=== PATIENT | female | born 1980 ===

== ENCOUNTER 2023-03-17 09:04 | Outpatient (AMB) | payer BC, SELFPAY ==
--- NOTE | 2023-03-17 09:16 | A.OFFVIS_ITS ---
Intake VS Expanded 03/17/23 09:22 Height 5 ft 5 in Weight 186 lb 12.8 oz BMI 31.1 BP 155/57 H Blood Pressure Location Rt brachial Blood Pressure Position Sitting Pulse 88 Pulse Source Pulse Oximeter Temp 97.4 F Temperature Source Temporal Artery Scan Pulse Oximetry 98 Oxygen Delivery Method Room Air Body Fat 64.0 Body Fat Percentage 34.2 Free Fat Mass 122.8 Muscle Mass 116.6 Visceral Mass 7.0 Water Mass 87.8 BMR 1,669 Intake Visit Reasons: (OV) Gastric Balloon *ARRIVE AT 8 AM* Nurse Paralegal Required: No Outside Sales Account Representative: Outside Sales Account Representative offered & declined Allergies No Known Allergies Allergy (Verified 03/17/23 09:19) Medication List - Last Reconciled 03/17/23 by Christian Velasco MD insulin lispro (Humalog KwikPen (U-100) Insulin) subcut HPI HPI Comments History of Present Illness Details The patient is a 42-year-old woman who scheduled an appointment to discuss her weight and concerns. She reports a history of DM2, HTN & snoring. Her weight became an issue in her early 20s & she has not tried any fad diets. She was transiently started on metformin for DM2, but was switched to insulin & Trulicity due to intolerance of metformin, with vomiting & diarrhea. I do not surrently have the pt's labs nor PCP/DM management notes, the patient is given me permission to communicate with her PCP and other physicians. The patient was offered interpretive language services but declined. Patient presents today with a weight of 186.8 lb and BMI of 31.1. The patient notes a history of hypertension but that her lisinopril may be stopped; she notes a prior history of being on metformin and did not tolerated due to diarrhea and vomiting; she states that she is currently being titrated on Trulicity to stop her NPH insulin She notes a family history of diabetes and diabetes related health problems in her immediate and extended family. Patient notes that she is interested in Orbera balloon. She reports that her heaviest weight was in the 220 range. Patient reports a history of stomach infections Patient's past surgical history includes 2 C sections and in vitro fertilization GERD 0 ESS 3 QOL 83 HALIMA 0 SF-36 questionnaire: Completed [facility] Surgical History (Updated 03/17/23 @ 09:19 by Angelica Sullivan CMA) Hx of section Family History (Updated 03/17/23 @ 09:21 by Angelica Sullivan CMA) Mother Hypertension Diabetes Father Hypertension Diabetes Kidney problem Son No problems noted. Daughter No problems noted. Social History (Updated 03/17/23 @ 09:19 by Angelica Sullivan CMA) Alcohol intake: never Patient Tobacco Use Status: Never used Tobacco Review of Systems Const All systems reviewed & are unremarkable except as noted in HPI and below Reports as per HPI Physical Exam Vital Signs: Last Vital Signs Temp 97.4 F 03/17/23 09:22 Pulse 88 03/17/23 09:22 BP 155/57 H 03/17/23 09:22 Pulse Ox 98 03/17/23 09:22 Oxygen Delivery Method Room Air 03/17/23 09:22 BMI result Body Mass Index 31.1 The patient is non-toxic & in good spirits NC/AT, PERRLA, EOMI Mood, affect & judgment all appear appropriate Sclera anicteric conjunctiva pink and moist Oropharynx is clear with no aphthous ulcers, Mallampati class 2, mucous membranes moist Neck is supple with no masses, adenopathy or bruits Thyroid is nontender and free of dominant masses Heart is regular, normal S1-S2 no rubs or murmurs Lungs are clear and equal anteriorly with no audible wheezing, rubs or dullness to percussion Abdomen is obese with no demonstrable hernias. No HSM, rebound, rigidity, guarding, masses or bruits are present. Rectal exam is deferred Skin has good turgor and is free of rashes Extremities free of cyanosis clubbing edema Results Reviewed Results Reviewed: The patient requested we obtain fasting labs from her PCP since she just had her diabetes and other general health labs done. We will also confer medications since the patient reported conflicting information to the MA and physician Assessment & Plan Assessment & Plan (1) Class 1 obesity due to excess calories in adult: Code(s): E66.09 - Other obesity due to excess calories (2) DMII (diabetes mellitus, type 2): Code(s): E11.9 - Type 2 diabetes mellitus without complications (3) HTN (hypertension): Code(s): I10 - Essential (primary) hypertension Plan Using a teaching printmaker, explained about obesity in the need to obtain dietary Education regarding diet since a high-protein, high-fiber diet is endorsed to help with weight loss. Specifically, excess carbohydrates, sugar sweetened beverages in fried foods including any type of fat will contribute to obesity and the importance of diet with any bariatric intervention was reviewed and apparently understood by the patient. I reviewed the patient's request of Orbera balloon with the hartman of $6000 that is not covered by the insurance and will require dietary changes to qualify for endoscopic placement and that the balloon stays for 6 months and is then removed. The importance of coordinating her care with her PCP and other per practitioners was discussed and requested by the patient. We will contact her PCP for an medication list and recent fasting labs. The patient will follow-up for 45 minute visit after we have obtained these labs and will continue the discussion of Orbera balloon. Coding Level of Care Code New Pt Level 4 (89997) Diagnoses Class 1 obesity due to excess calories in adult E66.09 DMII (diabetes mellitus, type 2) E11.9 HTN (hypertension) I10
[2023-03-17 09:22] VITALS: BP 155/57; PULSE 88; TEMP 36.3; O2SAT 98; BMI 31.1
== END 2023-03-17 10:44 | disposition home or self-care (01) ==
PROVIDERS: PCP Pediatrics; Visit Provider Surgery
DX: E66.09 Other obesity due to excess calories (principal); Z68.31 Body mass index [BMI] 31.0-31.9, adult; E11.9 Type 2 diabetes mellitus without complications; I10 Essential (primary) hypertension
CPT/HCPCS: 99204

== ENCOUNTER → 2023-03-17 09:04 | Outpatient (BNVA) | payer BC, SELFPAY | PROVIDERS: PCP Pediatrics; Visit Provider Surgery ==

== ENCOUNTER 2023-04-04 09:12 | Outpatient (AMB) | payer BC, SELFPAY ==
--- NOTE | 2023-04-04 09:40 | A.OFFVIS_ITS ---
Intake Vital Signs 04/04/23 09:46 Height 5 ft 5 in Weight 189 lb 9.561 oz BMI 31.5 BP 140/80 H Blood Pressure Location Lt brachial Position Sitting Pulse 84 Temp 98.0 F Temp Source Temporal Artery Scan Pulse Oximetry (%) 100 Neck Circumference 6.69 in Waist Circumference 16.93 in Intake Visit Reasons: (OV) f/u Gastric Balloon Intake Note: Patient here to f/u gastric balloon. Reports no concerns. Assistant Athletic Trainer Required: No Accompanied by: Self / Same As Patient Allergies No Known Allergies Allergy (Verified 04/04/23 09:45) HPI HPI Comments History of Present Illness Details The patient is a 42-year-old woman who reports a past medical history class 1 morbid obesity with a comorbidities of type 2 diabetes requiring insulin and hypertension. She is interested in Orbera balloon. Previous weight loss attempts include She reports her heaviest weight as Current exercise routine includes GERD ESS QOL HALIMA SF36 Wakes Sleep Brkfst lunch Din Snack Beverages ETOH/Marijuana/Nictotine/Drugs PFSH Surgical History Hx of section Family History Mother Hypertension Diabetes Father Hypertension Diabetes Kidney problem Son No problems noted. Daughter No problems noted. Social History Alcohol intake: never Patient Tobacco Use Status: Never used Tobacco Physical Exam Vital Signs: Last Vital Signs Temp 98.0 F 04/04/23 09:46 Pulse 84 04/04/23 09:46 BP 140/80 H 04/04/23 09:46 Pulse Ox 100 04/04/23 09:46 BMI result Body Mass Index 31.5 Coding Diagnoses
[2023-04-04 09:46] VITALS: BP 140/80; PULSE 84; TEMP 36.7; O2SAT 100; BMI 31.5
--- NOTE | 2023-04-04 09:58 | A.OFFVIS_ITS ---
Intake VS Expanded 04/04/23 09:46 Height 5 ft 5 in Weight 189 lb 9.561 oz BMI 31.5 BP 140/80 H Blood Pressure Location Lt brachial Blood Pressure Position Sitting Pulse 84 Temp 98.0 F Temperature Source Temporal Artery Scan Pulse Oximetry 100 Body Fat 64.4 Body Fat Percentage 34.5 Free Fat Mass 122.4 Muscle Mass 116.2 Visceral Mass 7.0 Water Mass 87.4 BMR 1,664 Neck Circumference 6.69 in Waist Circumference 16.93 in Intake Visit Reasons: (OV) f/u Gastric Balloon Intake Note: Patient here to f/u gastric balloon. Reports no concerns. No changes with medications. Delivery Assistant Required: No Public Relations Counselor: Public Relations Counselor offered & declined Accompanied by: Self / Same As Patient Allergies No Known Allergies Allergy (Verified 04/04/23 09:59) Medication List - Last Reviewed 04/04/23 by SHYANNE Tyson dulaglutide (Trulicity) 3 mg subcut QWEEK insulin lispro (Humalog KwikPen (U-100) Insulin) subcut lisinopril 10 mg PO DAILY HPI HPI Comments History of Present Illness Details The patient is a 42-year-old woman who scheduled an appointment to discuss her weight and concerns. She reports a history of DM2, HTN & snoring. Her weight became an issue in her early 20s & she has not tried any fad diets. She was transiently started on metformin for DM2, but was switched to insulin (Lantus & NPH) & Trulicity due to intolerance of metformin, with vomiting & diarrhea. The patient has given me permission to communicate with her PCP and other physicians. The patient notes that she has been experiencing some hypoglycemic episodes and has a follow-up with her PCP who is managing her diabetes in mid May. The patient was offered interpretive language services but declined. Patient presents today with a weight of 186.8 lb and BMI of 31.1, which is the same as entry into our program.. The patient notes a history of hypertension but that her lisinopril may be stopped; she notes a prior history of being on metformin and did not tolerated due to diarrhea and vomiting; she states that she is currently being titrated on Trulicity to stop her NPH insulin She notes a family history of diabetes and diabetes related health problems in her immediate and extended family. Patient notes that she is interested in Orbera balloon, but also had questions regarding possible bariatric surgery since her insurance is now covering baria tric surgery for patients with obesity and type 2 diabetes to a BMI of 30. She reports that her heaviest weight was in the 220 range. Patient reports a history of stomach infections Patient's past surgical history includes 2 C sections and in vitro fertilization GERD 0 ESS 3 QOL 83 HALIMA 0 SF-36 questionnaire: Completed [facility] Surgical History Hx of section Family History Mother Hypertension Diabetes Father Hypertension Diabetes Kidney problem Son No problems noted. Daughter No problems noted. Social History Alcohol intake: never Patient Tobacco Use Status: Never used Tobacco Review of Systems Const All systems reviewed & are unremarkable except as noted in HPI and below Reports as per HPI Physical Exam Vital Signs: Last Vital Signs Temp 98.0 F 04/04/23 09:46 Pulse 84 04/04/23 09:46 BP 140/80 H 04/04/23 09:46 Pulse Ox 100 04/04/23 09:46 BMI result Body Mass Index 31.5 On exam, the patient is anicteric She is in no acute respiratory distress She is in good spirits Her abdomen is obese and soft with no tenderness Results Reviewed Results Reviewed: Labs from [facility] dated 03/15/2023 are reviewed BUN 17, creatinine 0.8, electrolytes within normal parameters Liver function tests are within normal parameters Hemoglobin A1c 6.1 Magnesium, calcium-both normal Iron studies are within normal parameters Cholesterol is elevated at 213, HDL 40, non HDL 173, Vitamin-D 41.0 B12 elevated at 15 19 TSH 0.70, free T4 0.99 Assessment & Plan Assessment & Plan (1) Class 1 obesity due to excess calories in adult: Code(s): E66.09 - Other obesity due to excess calories (2) DMII (diabetes mellitus, type 2): Code(s): E11.9 - Type 2 diabetes mellitus without complications (3) HTN (hypertension): Code(s): I10 - Essential (primary) hypertension (4) High cholesterol: Code(s): E78.00 - Pure hypercholesterolemia, unspecified Plan Online Education regarding bariatric surgery options was provided to the patient; she was unaware that she qualified and would like to do some self Education before committing to either the Orbera balloon or operative intervention. She understands and we discussed that medical management is still an option. Dietary handouts and meal replacement with a protein shake was disc ussed. The patient is currently taking a multivitamin. The importance of exercise as part of successful weight loss in addition to meal replacement and dietary Education regarding a high-protein/low-carbohydrate/low-fat diet was discussed and apparently understood. The patient is in agreement that she would like to move forward, so I have ordered the routine Orbera pre procedure workup, I did not order repeat labs including CBC, CMP, vitamin-D, B12. Patient will return in early May; she has a follow-up with her PCP/diabetic physician in mid May. She is encouraged to write down any questions regarding the options of medical weight loss, bariatric surgery and gastric balloon for her next appointment. Orders: Orders C Reactive Protein Today E11.9 - Type 2 diabetes mellitus without complications, E66.09 - Other obesity due to excess calories, E78.00 - Pure hypercholesterolemia, unspecified, I10 - Essential (primary) hypertension Insulin Today E11.9 - Type 2 diabetes mellitus without complications, E66.09 - Other obesity due to excess calories, E78.00 - Pure hypercholesterolemia, unspecified, I10 - Essential (primary) hypertension PTHI Today E11.9 - Type 2 diabetes mellitus without complications, E66.09 - Other obesity due to excess calories, E78.00 - Pure hypercholesterolemia, unspecified, I10 - Essential (primary) hypertension Vitamin A Today E11.9 - Type 2 diabetes mellitus without complications, E66.09 - Other obesity due to excess calories, E78.00 - Pure hypercholesterolemia, unspecified, I10 - Essential (primary) hypertension Vitamin B1 Today E11.9 - Type 2 diabetes mellitus without complications, E66.09 - Other obesity due to excess calories, E78.00 - Pure hypercholesterolemia, unspecified, I10 - Essential (primary) hypertension Zinc Today E11.9 - Type 2 diabetes mellitus without complications, E66.09 - Other obesity due to excess calories, E78.00 - Pure hypercholesterolemia, unspecified, I10 - Essential (primary) hypertension ECG 12 lead EKG Today E11.9 - Type 2 diabetes mellitus without complications, E66.09 - Other obesity due to excess calories, E78.00 - Pure hypercholesterolemia, unspecified, I10 - Essential (primary) hypertension H Pylori Breath Test Today E11.9 - Type 2 diabetes mellitus without complications, E66.09 - Other obesity due to excess calories, E78.00 - Pure hypercholesterolemia, unspecified, I10 - Essential (primary) hypertension Coding Level of Care Code Est Pt Level 4 (28197) Diagnoses Class 1 obesity due to excess calories in adult E66.09 DMII (diabetes mellitus, type 2) E11.9 HTN (hypertension) I10 High cholesterol E78.00
== END 2023-04-04 10:37 | disposition home or self-care (01) ==
PROVIDERS: PCP Pediatrics; Visit Provider Surgery
DX: E66.09 Other obesity due to excess calories (principal); Z68.31 Body mass index [BMI] 31.0-31.9, adult; E11.9 Type 2 diabetes mellitus without complications; I10 Essential (primary) hypertension
CPT/HCPCS: 99214

== ENCOUNTER → 2023-04-04 09:12 | Outpatient (BNVA) | payer BC, SELFPAY | PROVIDERS: PCP Pediatrics; Visit Provider Surgery ==

== ENCOUNTER 2023-05-09 08:47 | Outpatient (AMB) | payer BC, SELFPAY ==
--- NOTE | 2023-05-09 08:49 | A.OFFVIS_ITS ---
Intake VS Expanded 05/09/23 09:01 Height 5 ft 6 in Weight 189 lb 3.2 oz BMI 30.5 BP 134/77 Blood Pressure Location Rt brachial Blood Pressure Position Sitting Pulse 99 Pulse Source Pulse Oximeter Temp 97.4 F Temperature Source Tympanic Pulse Oximetry 98 Oxygen Delivery Method Room Air Body Fat 63.2 Body Fat Percentage 33.4 Free Fat Mass 125.8 Muscle Mass 119.4 Visceral Mass 7.0 Water Mass 89.8 BMR 1,706 Intake Visit Reasons: (OV) f/u Gastric Balloon Avionics Manager Required: No Cryptologic Technician Operator/Analyst: Cryptologic Technician Operator/Analyst offered & declined Allergies No Known Allergies Allergy (Verified 05/09/23 08:58) Medication List - Last Reviewed 05/09/23 by Arlette Salas CMA dulaglutide (Trulicity) 3 mg subcut QWEEK insulin lispro (Humalog KwikPen (U-100) Insulin) subcut HPI HPI Comments History of Present Illness Details The patient is a 42-year-old woman who scheduled an appointment to discuss her weight and concerns. She reports a history of DM2, HTN & snoring. Her weight became an issue in her early 20s & she has not tried any fad diets. She was transiently started on metformin for DM2, but was switched to insulin (Lantus & NPH) & Trulicity due to intolerance of metformin, with vomiting & diarrhea. The patient has given me permission to communicate with her PCP and other physicians. The patient notes that she has been experiencing some hypoglycemic episodes and has a follow-up with her PCP who is managing her diabetes in mid May. The patient was offered interpretive language services but declined. Patient presents today with a weight of 189.2/30.5, up from last visit 186.8 lb, which is the same as entry into our program. The patient notes a history of hypertension requiring lisinopril; she notes a prior history of being on metformin and did not tolerated due to diarrhea and vomiting; she states that she is currently being titrated on Trulicity to stop her NPH insulin She notes a family history of diabetes and diabetes related health problems in her immediate and extended family. Patient notes that she is interested in laparoscopic sleeve gastrectomy given her DM & HTN, since her insurance is now covering bariatric surgery for patients with obesity and type 2 diabetes to a BMI of 30. She reports that her heaviest weight was in the 220 range. Patient reports a history of stomach infections Patient's past surgical history includes 2 C sections and in vitro fertilization GERD 0 ESS 3 QOL 83 HALIMA 0 SF-36 questionnaire: Completed Meal plan Currently using Pure protein with almond milk. The Right BMI goal: 70gm protein Meal at Dinner 7 forkfuls meat & 7 vegetables Has [employer] membership, but has been walking outside 3-4 days x 45-60' unsure of distance or calories PFSH Surgical History Hx of section Family History Mother Hypertension Diabetes Father Hypertension Diabetes Kidney problem Son No problems noted. Daughter No problems noted. Social History Alcohol intake: never Patient Tobacco Use Status: Never used Tobacco Review of Systems Const All systems reviewed & are unremarkable except as noted in HPI and below Reports as per HPI Physical Exam Vital Signs: Last Vital Signs Temp 97.4 F 05/09/23 09:01 Pulse 99 05/09/23 09:01 BP 134/77 05/09/23 09:01 Pulse Ox 98 05/09/23 09:01 Oxygen Delivery Method Room Air 05/09/23 09:01 BMI result Body Mass Index 30.5 On exam, the patient is anicteric She is in no acute respiratory distress She is in good spirits Her abdomen is obese and soft with no tenderness Results Reviewed Results Reviewed: Labs from [facility] dated 03/15/2023 are reviewed BUN 17, creatinine 0.8, electrolytes within normal parameters Liver function tests are within normal parameters Hemoglobin A1c 6.1 Magnesium, calcium-both normal Iron studies are within normal parameters Cholesterol is elevated at 213, HDL 40, non HDL 173, Vitamin-D 41.0 B12 elevated at 15 19 TSH 0.70, free T4 0.99 Assessment & Plan Assessment & Plan (1) DMII (diabetes mellitus, type 2): Code(s): E11.9 - Type 2 diabetes mellitus without complications (2) Class 1 obesity due to excess calories in adult: Code(s): E66.09 - Other obesity due to excess calories (3) HTN (hypertension): Code(s): I10 - Essential (primary) hypertension (4) High cholesterol: Code(s): E78.00 - Pure hypercholesterolemia, unspecified Plan The patient would like to proceed with a laparoscopic sleeve gastrectomy, possible hiatal hernia repair, intraoperative endoscopy and possible ventral hernia repair given her obesity related type 2 diabetes requiring insulin and Trulicity, hypertension requiring lisinopril which is being changed by her PCP given dizziness issues. Patient has used both or gain protein powder an almond milk and pure protein supplement in almond milk. Her goal of 70 g of protein per day was obtained by the right BMI apps. As she requested, this information will be emailed to her and she will purchase a body composition scale. The importance of following the diet and increased activity, specifically tracking of calories burned to augment weight loss and help her obtain goals was reviewed and apparently understood. Patient will return to clinic in 3 weeks and text me weekly weights. The risk of weight gain and return of type 2 diabetes requiring medical intervention in the event of resuming previous diet was discussed. The importance of increased activity/exercise was also discussed and apparently understood. Preop Bariatric Plan 1.?? Nutritional counseling:?Be sure to careful read the number of scoops per shake if you are using powdered mix Start with 3 Pure Protein shakes ([employer], [employer], [facility]) 2.?? Goal: 70 grams of protein/day, as shakes & dinner protein First shake (1 scoop in 8 oz low fat unsweetened almond milk) at 8am-10am Second shake, (1/2 scoop in 8 oz low fat unsweetened almond milk) at 11am-1pm Dinner ?(7 forks of protein and 7 forks of salad/vegetables). Meal to include lean meat (beef, fish, pork, turkey, chicken), cooked vegetables or a salad with olive oil and/or fruits (berries, pears, apples, kiwi). Avoid breads, potatoes, starches, rice, pasta, desserts. Another shake with 1/2 scoop in 8 oz unsweetened almond milk at 7pm-9pm. Try to drink 64 oz of water daily and avoid soda and juices. ?2. Each shake would be drunk slowly, like coffee in a period of 2 hours. ?3. Cut each bar in 4 pieces and eat each piece in 30 min to make each bar last 2 hours. ?4. I emphasized the importance of measuring accurately the food portion and measure it carefully when serving the food on the plate ?5. The meal portions include 10 full-size forks of meat and 10 full-size forks of salad. You should always eat the meat portion but you can skip the forks of salad/vegetables and replace with a fruit if you like. The less you do it the better weight loss will be. ?6. One full-size fork is what can be scooped on the fork without falling aside and not what can be bit with the fork. Use regular forks like those you find in a typical restaurant. ?7.? Please send me weight measurements as soon as possible and then once a week. Always include your diet and exercise plan. Alternatively come weekly at the office for weight checks and send me the measurements. ?8. Exercise counseling:? Begin by watching a stretching for beginner?s video.? Start slowly and begin to stretch your muscles.? You should do this before and after each exercise session to prevent injury.? Please use the exercise equipment at your building. Start elliptical with a resistance of 2. Increase resistance by 1 every 3 min to your most comfortable resistance with a max resistance of 8.? Reduce the resistance by 1 every 3 minutes back down to 2 and repeat cycles for 300 calories. Alternatively, start treadmill with a speed of 3.0 and incline of 0, increasing incline by 1 every 3 minutes to the highest comfortable level (max 6 for now) then decrease in the same fashion.? Repeat process to a goal of 300 calories.? Goal of 2000 calories burned or more weekly.? You may also consider use of the stationary bike.? The easiest would be to choose the fat-burn or interval training program on the machine and do this until you reach the 300 calorie goal.? Alternatively, you can manually adjust the resistance in a similar fashion as mentioned above, (resistance of 2-8 with a goal speed of 12 mph).?Tracking calories is essential. 9. Alternatively, start walking outside daily, tracking calories with a goal of 300 calories per day, daily. If [id number] is needed, you can start there, but the goal is DAILY. You can download the lyla?Walkmore?which can track your time, distance and calories while walking outside.? You press start in the lyla when you start and then stop when you are finished. ? 10.? It is important to avoid and for at least 18 months postoperatively and it has been discussed at the information session 11. Please get labs, EKG and chest X-Ray within 1 week. 12. Discussed and answered all questions regarding?obtained consent to participate in the [place] [facility]?Registry. 13. Please follow the diet plan exactly, without any change.? If you do not like something about the plan or you feel hungry, you need to communicate with me so I can help you revise the plan.? You should not change the plan yourself. 14. Goal is to lose 1.5-2.0 lbs/week 15. Goal is to lose 10% of your weight before surgery, which is about 19 lbs. Ultimate weight goal: 170 lbs before surgery IF YOU EXPERIENCE PAIN, SEVERE SHORTNESS OF BREATH, DIZZINESS OR L IGHTHEADEDNESS, OR SIGNIFICANT CONSTIPATION OR DIARRHEA, (DIARRRHEA CAN OCCUR FROM SOME ARTIFICIAL SWEETENERS) PLEASE NOTIFY THE OFFICE! If you have diabetes, you will need to follow your blood sugars.? Please discuss with Dr. Velasco.? If you have hypertension/high blood pressure, you will need to monitor your blood pressure regarding adjusting medications.? Please discuss with Dr. Velasco.? Patient is morbidly obese and is not considered stable at this time.?I spent a total of __ minutes reviewing/updating records, examining the patient and counseling the patient on weight management as detailed above. [employer] options: ?Sit to Be Fit, Daily Burn, Kathy, Walk away the pounds, The [employer] Project Websites: Sit and Be Fit? https://www.sitandbefit.org/ Go For Life https://vp7smdk.shantel.nih.gov/ Orders: Orders Vitamin B12 and Folate Today E11.9 - Type 2 diabetes mellitus without complications, E66.09 - Other obesity due to excess calories, E78.00 - Pure hypercholesterolemia, unspecified, I10 - Essential (primary) hypertension Comprehensive Met. Panel Today E11.9 - Type 2 diabetes mellitus without complications, E66.09 - Other obesity due to excess calories, E78.00 - Pure hypercholesterolemia, unspecified, I10 - Essential (primary) hypertension C Reactive Protein Today E11.9 - Type 2 diabetes mellitus without complications, E66.09 - Other obesity due to excess calories, E78.00 - Pure hypercholesterolemia, unspecified, I10 - Essential (primary) hypertension Ferritin Today E11.9 - Type 2 diabetes mellitus without complications, E66.09 - Other obesity due to excess calories, E78.00 - Pure hypercholesterolemia, unspecified, I10 - Essential (primary) hypertension Hemoglobin A1c Today E11.9 - Type 2 diabetes mellitus without complications, E66.09 - Other obesity due to excess calories, E78.00 - Pure hypercholesterolemia, unspecified, I10 - Essential (primary) hypertension Insulin Today E11.9 - Type 2 diabetes mellitus without complications, E66.09 - Other obesity due to excess calories, E78.00 - Pure hypercholesterolemia, unspecified, I10 - Essential (primary) hypertension IRON PROFILE Today E11.9 - Type 2 diabetes mellitus without complications, E66.09 - Other obesity due to excess calories, E78.00 - Pure hypercholesterolemia, unspecified, I10 - Essential (primary) hypertension Lipid Panel Today E11.9 - Type 2 diabetes mellitus without complications, E66.09 - Other obesity due to excess calories, E78.00 - Pure hypercholesterolemia, unspecified, I10 - Essential (primary) hypertension PTHI Today E11.9 - Type 2 diabetes mellitus without complications, E66.09 - Other obesity due to excess calories, E78.00 - Pure hypercholesterolemia, unspecified, I10 - Essential (primary) hypertension TSH reflex Free T4 Today E11.9 - Type 2 diabetes mellitus without complications, E66.09 - Other obesity due to excess calories, E78.00 - Pure hypercholesterolemia, unspecified, I10 - Essential (primary) hypertension Vitamin A Today E11.9 - Type 2 diabetes mellitus without complications, E66.09 - Other obesity due to excess calories, E78.00 - Pure hypercholesterolemia, unspecified, I10 - Essential (primary) hypertension Vitamin B1 Today E11.9 - Type 2 diabetes mellitus without complications, E66.09 - Other obesity due to excess calories, E78.00 - Pure hypercholesterolemia, unspecified, I10 - Essential (primary) hypertension Vitamin D 25-OH Total Today E11.9 - Type 2 diabetes mellitus without complications, E66.09 - Other obesity due to excess calories, E78.00 - Pure hypercholesterolemia, unspecified, I10 - Essential (primary) hypertension Zinc Today E11.9 - Type 2 diabetes mellitus without complications, E66.09 - Other obesity due to excess calories, E78.00 - Pure hypercholesterolemia, unspecified, I10 - Essential (primary) hypertension ECG 12 lead EKG Today E11.9 - Type 2 diabetes mellitus without complications, E66.09 - Other obesity due to excess calories, E78.00 - Pure hypercholesterolemia, unspecified, I10 - Essential (primary) hypertension FL upper GI w air Today E11.9 - Type 2 diabetes mellitus without complications, E66.09 - Other obesity due to excess calories, E78.00 - Pure hypercholesterolemia, unspecified, I10 - Essential (primary) hypertension Complete Blood Count Auto Diff Today E11.9 - Type 2 diabetes mellitus without complications, E66.09 - Other obesity due to excess calories, E78.00 - Pure hypercholesterolemia, unspecified, I10 - Essential (primary) hypertension H Pylori Breath Test Today E11.9 - Type 2 diabetes mellitus without complications, E66.09 - Other obesity due to excess calories, E78.00 - Pure hypercholesterolemia, unspecified, I10 - Essential (primary) hypertension US abdomen comp w elastography Today E11.9 - Type 2 diabetes mellitus without complications, E66.09 - Other obesity due to excess calories, E78.00 - Pure hypercholesterolemia, unspecified, I10 - Essential (primary) hypertension XR chest 2V Today E11.9 - Type 2 diabetes mellitus without complications, E66.09 - Other obesity due to excess calories, E78.00 - Pure hypercholesterolemia, unspecified, I10 - Essential (primary) hypertension Referrals Behavioral Health Referral E11.9 - Type 2 diabetes mellitus without complications, E66.09 - Other obesity due to excess calories, E78.00 - Pure hypercholesterolemia, unspecified, I10 - Essential (primary) hypertension Nutrition/Dietitian Referral E11.9 - Type 2 diabetes mellitus without complications, E66.09 - Other obesity due to excess calories, E78.00 - Pure hypercholesterolemia, unspecified, I10 - Essential (primary) hypertension Coding Level of Care Code Est Pt Level 4 (38492) Diagnoses DMII (diabetes mellitus, type 2) E11.9 Class 1 obesity due to excess calories in adult E66.09 HTN (hypertension) I10 High cholesterol E78.00
[2023-05-09 09:01] VITALS: BP 134/77; PULSE 99; TEMP 36.3; O2SAT 98; BMI 30.5
== END 2023-05-09 09:33 | disposition home or self-care (01) ==
PROVIDERS: PCP Pediatrics; Visit Provider Surgery
DX: E66.09 Other obesity due to excess calories (principal); Z68.30 Body mass index [BMI] 30.0-30.9, adult; E11.9 Type 2 diabetes mellitus without complications; E78.00 Pure hypercholesterolemia, unspecified; I10 Essential (primary) hypertension
CPT/HCPCS: 99214

== ENCOUNTER → 2023-05-09 08:47 | Outpatient (BNVA) | payer BC, SELFPAY | PROVIDERS: PCP Pediatrics; Visit Provider Surgery ==

== ENCOUNTER 2023-08-08 11:29 | Outpatient (REF) | payer BC, SELFPAY ==
[2023-08-08 11:55] LABS: MANUAL DIFF FLAG NO
[2023-08-08 12:50] LABS: Basophils Absolute Auto 0.1 X10*3/uL (0.0-0.2); Eosinophils Absolute Auto 0.4 X10*3/uL (0.0-0.4); Eosinophils Percent Auto 4.9 % (0-4); Hematocrit 40.2 % (37.0-47.0); Hemoglobin 13.6 g/dl (12.0-16.0); Imm Gran Abs Auto 0.04 X10*3/uL (0.00-0.03); Imm Gran Pct Auto 0.5 % (0.0-0.4); Lymphocytes Absolute Auto 2.5 X10*3/uL (1.2-4.9); Lymphocytes Percent Auto 32.5 % (20-40); Mean Corpuscular HGB Conc 33.8 g/dl (31.0-35.0); Mean Corpuscular Hemoglobin 29.8 pg (27.0-33.0); Mean Corpuscular Volume 88.2 fL (80.0-98.0); Mean Platelet Volume 12.4 fL (9.4-12.3); Monocytes Absolute Auto 0.6 X10*3/uL (0.1-1.2); Monocytes Percent Auto 7.8 % (2-11); Neutrophils Absolute Auto 4.2 x10*3/uL (2.0-8.3); Neutrophils Percent Auto 53.3 % (45-73); Platelet Count 272 X10*3/uL (160-400); Red Blood Count 4.56 X10*6/uL (4.20-5.50); Red Cell Distribution Width 11.9 % (11.0-16.0); White Blood Count 7.8 X10*3/uL (4.8-10.8)
[2023-08-08 13:13] LABS: Estimated Average Glucose 137 mg/dL; Hemoglobin A1c % 6.4 % (<6.0)
[2023-08-08 13:37] LABS: Alanine Aminotransferase 55 U/L (0-31); Albumin Level 4.4 g/dL (3.5-5.0); Alkaline Phosphatase 59 U/L (39-117); Anion Gap 12 (12-20); Aspartate Amino Transferase 41 U/L (5-31); Bilirubin Total 0.3 mg/dL (0.0-1.0); Blood Urea Nitrogen 20 mg/dL (9-16); C Reactive Protein 0.68 mg/dL (< or = 0.50); Calcium 10.2 mg/dL (8.4-10.2); Carbon Dioxide 28 mmol/L (22-29); Chloride 104 mmol/L (96-108); Cholesterol 174 mg/dL (<200); Estimated Glomerular Filt Rate > 60; Glucose Random 82 mg/dL (60-115); HDL Cholesterol 34 mg/dL (>40); Iron 74 mcg/dL (30-160); LDL Cholesterol Calculated 112 mg/dL (<100); Percent Iron Saturation 23 % (15-50); Potassium 3.9 mmol/L (3.3-5.1); Sodium 140 mmol/L (135-145); Total Iron Binding Capacity 319 mcg/dL (228-428); Triglycerides 142 mg/dL (<150); Unsaturated Iron Binding 245 ug/dL
[2023-08-08 14:41] LABS: Ferritin 110 ng/mL (10-250); Insulin 83 uU/mL (2-29); TSH reflex Free T4 0.69 uIU/mL (0.32-4.0); Vitamin D 25-OH Total 39.3 ng/mL (>30)
[2023-08-08 15:46] LABS: Folate 13.8 ng/mL (> or = 4.0); Vitamin B12 1708 pg/mL (200-900)
[2023-08-12 17:27] LABS: Zinc 70 mcg/dL (60-130)
[2023-08-15 11:13] LABS: Vitamin A 52 mcg/dL (38-98)
[2023-08-15 18:35] LABS: Vitamin B1 16 nmol/L (8-30)
== END 2023-08-08 11:30 | disposition home or self-care (01) ==
LOC: HO.LAB 11:29
PROVIDERS: PCP Pediatrics; Visit Provider Surgery
DX: E66.09 Other obesity due to excess calories (principal); E11.9 Type 2 diabetes mellitus without complications; E78.00 Pure hypercholesterolemia, unspecified; I10 Essential (primary) hypertension
CPT/HCPCS: 36415; 80053; 80061; 82306; 82607; 82728; 82746; 83036; 83525; 83540; 84425; 84443; 84590; 84630; 85025; 86140

== ENCOUNTER 2023-11-29 09:06 | Outpatient (REF) | payer BC, SELFPAY ==
--- NOTE | ~2023-11-29 | XR_ITS ---
EXAMINATION: XR CHEST CLINICAL INFORMATION: Other obesity due to excess calories COMPARISON: None available. TECHNIQUE: 2 views of the chest were obtained. FINDINGS: No significant abnormality is noted involving the heart, lungs, mediastinum, bony thorax or soft tissues. XR/XR chest 2V IMPRESSION: No acute cardiopulmonary disease.
--- NOTE | 2023-11-29 09:13 | ECG_ITS ---
Test Reason : obesity Blood Pressure : / mmHG Vent. Rate : 078 BPM Atrial Rate : 078 BPM P-R Int : 120 ms QRS Dur : 080 ms QT Int : 382 ms P-R-T Axes : 027 001 -04 degrees QTc Int : 435 ms Normal sinus rhythm Normal ECG No previous ECGs available Referred By: Christian Velasco Electronically Signed By:Moy Millan
[2023-11-29 09:55] LABS: C Reactive Protein 0.35 mg/dL (< or = 0.50)
[2023-12-01 18:04] LABS: Zinc 106 mcg/dL (60-130)
[2023-12-07 06:19] LABS: Vitamin B1 12 nmol/L (8-30)
== END 2023-11-29 09:07 | disposition home or self-care (01) ==
LOC: HO.LAB 09:06
PROVIDERS: PCP Pediatrics; Visit Provider Surgery
DX: E66.09 Other obesity due to excess calories (principal); E11.9 Type 2 diabetes mellitus without complications; I10 Essential (primary) hypertension; E78.00 Pure hypercholesterolemia, unspecified
CPT/HCPCS: 36415; 71046; 84425; 84630; 86140; 93005

== ENCOUNTER → 2023-11-29 09:13 | Outpatient (BNV) | payer BC, SELFPAY | PROVIDERS: PCP Pediatrics; Visit Provider Internal Medicine Cardiovascular Disease | DX: E66.09 Other obesity due to excess calories (principal) | CPT/HCPCS: 93010 ==

== ENCOUNTER 2024-03-22 09:47 | Outpatient (AMB) | payer BC, SELFPAY ==
--- NOTE | 2024-03-22 09:55 | MHC.OFFVISWM ---
VS Expanded 03/22/24 10:02 BP 130/70 Blood Pressure Location Rt brachial Blood Pressure Position Sitting Pulse 70 Pulse Source Pulse Oximeter Temp 96.9 F Temperature Source Temporal Artery Scan Pulse Oximetry 98 Oxygen Delivery Method Room Air Height 5 ft 6 in Weight 189 lb 6.4 oz BMI 30.6 Body Fat % 34.3 Body Fat Mass 65.0 Fat Free Mass 124.4 Visceral Fat Rating 7.0 Body Water % 46.8 Body Water Mass 88.6 Muscle Mass/Score 118.2 Basal Metabolic Rate/Score 1,688 Intake Visit Reasons: (OV) Re-Establish SWL *See Comments* Allergies No Known Allergies Allergy (Verified 03/22/24 09:58) HPI Comments Details: Patient is a 43-year-old female who returns to the office today in follow-up. She was part of the Surgical weight loss program, possibly to get an Oberra gastric balloon in 03/23/2023. She was in our program from March through 05/24/2023. She had gained approximately 2.4 lb over that time period. Her last known weight on 05/09/2023 was 189.2 lb. Weight today is 189.4 lb with a BMI of 30.6. She states she had labs done about 3 weeks ago by her pcp. Reports BS at home 120-150. BP at home 120s/80s Meal plan: less carbs, no soda, no juice, no sugar. nothing structured Exercise plan: Best fitness [employer], Strength w show dog trainer cardio at home, walking outside, 3 days per week, not tracking calories. [facility] Surgical History Hx of section Family History Mother Hypertension Diabetes Father Hypertension Diabetes Kidney problem Son No problems noted. Daughter No problems noted. Social History Alcohol intake: never Patient Tobacco Use Status: Never used Tobacco Physical Exam Const General: healthy appearing and no acute distress Resp Effort & Inspection: normal respiratory effort Auscultation: clear to auscultation bilaterally Cardio Rate: regular rate Rhythm: regular rhythm GI Auscultation: normal bowel sounds Extrem General: Yes normal to inspection Assessment & Plan Assessment & Plan (1) Obesity (BMI 30-39.9): Code(s): E66.9 - Obesity, unspecified Category: Medical Plan: This is a?43 yo female who will re-start our SWL program to prepare for bariatric surgery.? She states that she had blood work through her primary care physician approximately 2-3 weeks ago. She will get this for us so we may skin into her chart. She was made aware that we may need to check certain vitamin levels if that was not done. She is being scheduled for initial consultations. She will start SWL classes and watch the first three videos before her next appointment. 1. You have been given a paper with a link to our software lyla ([employer]) to generate an individualized nutritional and exercise plan specific for you. Please send me a screenshot of the plans you will generate Meal to include lean meat (beef, fish, pork, turkey, chicken), or namibian yogurt, or egg whites, or beans with a salad with olive oil and fruits (berries, pears, apples, kiwi). Avoid salt, breads, potatoes, rice, pasta, desserts. 2. If you choose shakes, each shake would be drunk slowly, like coffee over a period of 2 hours. 3. If you choose bars, cut each bar in 4 pieces and eat each piece in 30min to make each bar last 2 hours. 4. I emphasized the importance of measuring accurately the food portion and measure it when serving the food on a plate 5. The meal portions include a specific number of forks of meat (protein) and salad. You always eat the meat portion but you can replace up to half of salad/vegetables portion with rice, potatoes or pasta, or a fruit ?if you like. The less you do it the better weight loss will be. 6. One full-size fork is what it can be scooped on the fork without falling aside and not what can be bit with the fork. Use regular forks like those you find in a typical restaurant. 7.? Please send me weight measurements from your body composition scale as soon as possible and then once a week. Always include your diet and exercise plan. The best time to weigh yourself is first thing in the morning after going to the bathroom. 8. The best choice for exercise would be treadmill and walking outside 9.?Goal is to lose at least 1.5-2lbs per week, and about 10% before surgery, which is about 19 pounds 10. Please follow the diet plan exactly without any change. If you don't like something about the plan or you feel hungry you need to communicate with me so I can help you revise the plan. My cell phone number to communicate with me by text is [phone] Patient is morbidly obese and is not considered stable at this time.?I spent a total of 70 minutes reviewing/updating records, examining the patient and counseling the patient on weight management as detailed above.
[2024-03-22 10:02] VITALS: BP 130/70; PULSE 70; TEMP 36.1; O2SAT 98; BMI 30.6
== END 2024-03-22 10:19 | disposition home or self-care (01) ==
PROVIDERS: PCP Pediatrics; Visit Provider Physician Assistant Surgical
DX: E66.9 Obesity, unspecified (principal); Z68.30 Body mass index [BMI] 30.0-30.9, adult
CPT/HCPCS: 99214

== ENCOUNTER → 2024-03-22 09:47 | Outpatient (BNVA) | payer BC, SELFPAY | PROVIDERS: PCP Pediatrics; Visit Provider Physician Assistant Surgical ==

== ENCOUNTER 2024-06-03 08:02 | Outpatient (REF) | payer BC, SELFPAY ==
--- NOTE | ~2024-06-03 | US_ITS ---
EXAMINATION: US COMPLETE ABDOMEN WITH LIVER ELASTOGRAPHY CLINICAL INFORMATION: Obesity COMPARISON: None available. TECHNIQUE: Real-time imaging of the abdominal viscera. Noninvasive ultrasound liver fibrosis assessment is performed using [employer] ElastPQ point quantification shear wave elastography (pSWE) with a C5-2 MHz transducer. Multiple elastography samples are obtained. FINDINGS: PANCREAS: Normal. The visualized pancreatic head and body are normal in appearance. The remainder of the pancreas is obscured from visualization by the overlying bowel gas. ABDOMINAL AORTA: The proximal, middle, and distal aortic segments are normal in caliber. INFERIOR VENA CAVA: Visualized portions are normal. LIVER: The liver is enlarged with maximum dimension of 19.5 cm with increased echogenicity consistent with steatosis. No focal lesion or intrahepatic biliary duct dilatation. The right lobe measures 19.5 cm in length. The left lobe measures 9.9 cm in length. Portal flow is towards the liver (hepatopetal). Shear wave liver elastography median stiffness is 1.72 m/s (reference: normal median stiffness is 1.3 m/s or less). IQR/median stiffness to assess sampling precision is 0.09 (reference: good quality data set is IQR/median stiffness of 0.15 or less). GALLBLADDER: Normal. The gallbladder is physiologically distended without evidence of stones, sludge, polyps, wall thickening or pericholecystic fluid. COMMON BILE DUCT: Normal in caliber measuring 0.2 cm in diameter. RIGHT KIDNEY: Normal. No hydronephrosis. No renal calculi or focal parenchymal lesions. The kidney measures 10.4 cm in maximum dimension. LEFT KIDNEY: Normal. No hydronephrosis. No renal calculi or focal parenchymal lesions. The kidney measures 10.9 cm in maximum dimension. SPLEEN: Spleen is mildly enlarged measuring 12.6 cm in maximum dimension. FREE FLUID: None. US/US abdomen comp w elastography IMPRESSION: 1. Enlarged fatty liver with mild splenomegaly. 2. Liver elastography: Measurements are suggestive of compensated advanced chroniic liver disease but need further test for confirmation. REFERENCE: Society of Radiologists in Ultrasound Liver Stiffness Thresholds (2019): LIVER STIFFNESS THRESHOLDS: *Liver Stiffness equal or less than 1.3 m/s: High probability of being normal. *Liver Stiffness less than 1.7 m/s: In the absence of other known clinical signs, rules out compensated advanced chronic liver disease. *Liver Stiffness 1.7-2.1 m/s: Suggestive of compensated advanced chronic liver disease but need further test for confirmation. *Liver Stiffness over 2.1 m/s: Rules in compensated advanced chronic liver disease. *Liver Stiffness over 2.4 m/s: Suggestive of clinically significant portal hypertension. QUALITY OF DATA SET: *IQR/Median value equal or less than 0.15 implies a quality data set. *IQR/Median value over 0.15 implies a poor quality data set. SIGNIFICANT CHANGE FROM PRIOR EXAM: Significant change if liver stiffness measurement is 10% or greater from prior exam. OTHER CONSIDERATIONS: The stage of liver fibrosis may be overestimated in the setting of acute hepatitis, liver inflammation, elevated liver function tests, hepatic vascular congestion, obstructive cholestasis, non-fasting state, and infiltrative diseases such as amyloidosis and lymphoma. In some patients with NAFLD, the liver stiffness thresholds for compensated advanced chronic liver disease may be lower. In causes other than viral hepatitis and NAFLD, liver stiffness thresholds are not well established. Electronically signed by: Vikas Hudson MD 07/18/2024 01:45 PM [facility]
[2024-06-03 08:53] LABS: MANUAL DIFF FLAG NO
[2024-06-03 09:11] LABS: Basophils Absolute Auto 0.1 X10*3/uL (0.0-0.2); Basophils Percent Auto 1.3 % (0-2); Eosinophils Absolute Auto 0.2 X10*3/uL (0.0-0.4); Eosinophils Percent Auto 4.4 % (0-4); Hematocrit 40.6 % (37.0-47.0); Imm Gran Abs Auto 0.01 X10*3/uL (0.00-0.03); Imm Gran Pct Auto 0.2 % (0.0-0.4); Lymphocytes Absolute Auto 1.5 X10*3/uL (1.2-4.9); Lymphocytes Percent Auto 31.1 % (20-40); Mean Corpuscular HGB Conc 34.5 g/dl (31.0-35.0); Mean Corpuscular Hemoglobin 30.3 pg (27.0-33.0); Mean Corpuscular Volume 87.9 fL (80.0-98.0); Mean Platelet Volume 12.1 fL (9.4-12.3); Monocytes Absolute Auto 0.4 X10*3/uL (0.1-1.2); Monocytes Percent Auto 8.9 % (2-11); Neutrophils Absolute Auto 2.6 x10*3/uL (2.0-8.3); Neutrophils Percent Auto 54.1 % (45-73); Platelet Count 206 X10*3/uL (160-400); Red Blood Count 4.62 X10*6/uL (4.20-5.50); Red Cell Distribution Width 11.7 % (11.0-16.0); White Blood Count 4.7 X10*3/uL (4.8-10.8)
[2024-06-03 09:22] LABS: Estimated Average Glucose 146 mg/dL; Hemoglobin A1c % 6.7 % (<6.0); Total Hemoglobin (HGBA1C) 3495.0687 umol/L
[2024-06-03 09:49] LABS: Parathyroid Hormone Intact 39.6 pg/mL (8.7-77.1)
[2024-06-03 09:54] LABS: Alanine Aminotransferase 55 U/L (0-31); Albumin Level 4.5 g/dL (3.5-5.0); Alkaline Phosphatase 65 U/L (39-117); Anion Gap 11 (12-20); Aspartate Amino Transferase 36 U/L (5-31); Bilirubin Total 0.4 mg/dL (0.0-1.0); Blood Urea Nitrogen 14 mg/dL (9-16); C Reactive Protein 0.28 mg/dL (< or = 0.50); Calcium 9.9 mg/dL (8.4-10.2); Carbon Dioxide 27 mmol/L (22-29); Chloride 105 mmol/L (96-108); Cholesterol 171 mg/dL (<200); Estimated Glomerular Filt Rate > 60; Glucose Random 156 mg/dL (60-115); HDL Cholesterol 38 mg/dL (>40); Iron 103 mcg/dL (30-160); LDL Cholesterol Calculated 102 mg/dL (<100); Percent Iron Saturation 29 % (15-50); Potassium 4.2 mmol/L (3.3-5.1); Sodium 139 mmol/L (135-145); Total Iron Binding Capacity 354 mcg/dL (228-428); Total Protein 7.7 g/dL (6.5-8.0); Triglycerides 155 mg/dL (<150); Unsaturated Iron Binding 251 ug/dL
[2024-06-03 10:14] LABS: Ferritin 90 ng/mL (10-250); TSH reflex Free T4 0.55 uIU/mL (0.32-4.0); Vitamin D 25-OH Total 33.5 ng/mL (>30)
[2024-06-03 10:21] LABS: Folate 13.4 ng/mL (> or = 4.0); Vitamin B12 638 pg/mL (200-900)
[2024-06-03 10:51] LABS: Insulin 48 uU/mL (2-29)
[2024-06-06 02:09] LABS: Zinc 106 mcg/dL (60-130)
[2024-06-06 18:28] LABS: Vitamin A 47 mcg/dL (38-98)
[2024-06-10 14:58] LABS: Vitamin B1 11 nmol/L (8-30)
== END 2024-06-03 08:03 | disposition home or self-care (01) ==
LOC: HO.US 08:02
PROVIDERS: Visit Provider Physician Assistant Surgical
DX: E66.9 Obesity, unspecified (principal); E78.00 Pure hypercholesterolemia, unspecified; I10 Essential (primary) hypertension; E11.9 Type 2 diabetes mellitus without complications
CPT/HCPCS: 36415; 76700; 76981; 80053; 80061; 82306; 82607; 82728; 82746; 83036; 83525; 83540; 83970; 84425; 84443; 84590; 84630; 85025; 86140

== ENCOUNTER 2024-06-06 08:18 | Outpatient (AMB) | payer BC, SELFPAY ==
[2024-06-06 08:34] VITALS: BP 120/77; PULSE 98; BMI 29.6
--- NOTE | 2024-06-06 08:34 | MHC.OFFVIS ---
Vital Signs 06/06/24 08:34 Height 5 ft 6 in Weight 183 lb 3.2 oz BMI 29.6 BP 120/77 Blood Pressure Location Lt brachial Position Sitting Pulse 98 Intake Visit Reasons: (OV) F/U SWL Allergies No Known Allergies Allergy (Verified 03/22/24 09:58) PFSH Surgical History Hx of section Family History Mother Hypertension Diabetes Father Hypertension Diabetes Kidney problem Son No problems noted. Daughter No problems noted. Social History Alcohol intake: never Patient Tobacco Use Status: Never used Tobacco Physical Exam Vital Signs: Last Vital Signs Pulse 98 06/06/24 08:34 BP 120/77 06/06/24 08:34 BMI result Body Mass Index 29.6 Coding
--- NOTE | 2024-06-06 08:40 | MHC.OFFVISWM ---
VS Expanded 06/06/24 08:34 06/06/24 08:43 BP 120/77 Blood Pressure Location Lt brachial Blood Pressure Position Sitting Pulse 98 Height 5 ft 6 in Weight 183 lb 3.2 oz BMI 29.6 29.6 Body Fat % 33 Body Fat Mass 60.4 Visceral Fat Rating 6.0 Body Water % 47.8 Body Water Mass 87.6 Muscle Mass/Score 116.4 Basal Metabolic Rate/Score 1,658 Intake Visit Reasons: (OV) F/U SWL Allergies No Known Allergies Allergy (Verified 06/06/24 08:42) HPI Comments Details: Patient is a pleasant 43-year-old female who returns to the office today in follow-up. She is being seen in the surgical weight loss pathway. She initiated the program on 03/1924 but did not start her meal plan until last week. She states that she was on vacation and had some trouble with the lyla but is now doing her plan. Unfortunately she was doing 1 scoop per shake instead of half scoop per shake. We discussed the importance of following the directions very closely. Additionally, we discussed the importance of tracking her calories when walking outside meal plan: Pure protein powder 1/2 scoop each x 6 exercise plan: walking outside, 3 days per week, not tracking calories PFSH Surgical History Hx of section Family History Mother Hypertension Diabetes Father Hypertension Diabetes Kidney problem Son No problems noted. Daughter No problems noted. Social History Alcohol intake: never Patient Tobacco Use Status: Never used Tobacco Physical Exam Vital Signs: Last Vital Signs Pulse 98 06/06/24 08:34 BP 120/77 06/06/24 08:34 BMI result Body Mass Index 29.6 Const General: healthy appearing and no acute distress Resp Effort & Inspection: normal respiratory effort Auscultation: clear to auscultation bilaterally Cardio Rate: regular rate Rhythm: regular rhythm GI Auscultation: normal bowel sounds Extrem General: Yes normal to inspection Assessment & Plan Assessment & Plan (1) Overweight (BMI 25.0-29.9): Code(s): E66.3 - Overweight Category: Medical Plan: Patient has lost 6.2 lb or 3.2% total body weight since initiating the program. She did not start the meal plan until last week. She is choosing an aggressive plan within the right BMI lyla. she was unfortunately using 1 scoop per shake instead of half scoop per shake. We discussed the importance of following the directions very carefully. She was also encouraged to increase her walking from 3 days a week to 7 days a week and begin tracking her calories with a goal of 300 calories burned per day. We will have her transfer to Dr. Braxton for continued care. She was encouraged to continue to text weight is weekly and with any questions.
[2024-06-06 08:43] VITALS: BMI 29.6
== END 2024-06-06 09:12 | disposition home or self-care (01) ==
PROVIDERS: PCP Pediatrics; Visit Provider Physician Assistant Surgical
DX: E66.3 Overweight (principal); Z68.29 Body mass index [BMI] 29.0-29.9, adult
CPT/HCPCS: 99213

== ENCOUNTER → 2024-06-06 08:18 | Outpatient (BNVA) | payer BC, SELFPAY | PROVIDERS: PCP Pediatrics; Visit Provider Physician Assistant Surgical ==

== ENCOUNTER 2024-07-01 07:58 | Outpatient (AMB) | payer BC, SELFPAY ==
--- NOTE | 2024-07-01 10:29 | MHC.OFFVISWM ---
VS Expanded 07/01/24 10:53 Height 5 ft 6 in Weight 185 lb 6 oz BMI 29.9 Body Fat % 35.4 Body Fat Mass 65.7 Fat Free Mass 120 Visceral Fat Rating 12 Body Water % 44.3 Body Water Mass 82.2 Basal Metabolic Rate/Score 1,550 Intake Visit Reasons: TV Consult / Transfer Dada Allergies No Known Allergies Allergy (Verified 07/01/24 10:29) Medication List - Last Reconciled 07/01/24 by José Manuel Braxton MD dulaglutide (Trulicity) 3 mg subcut QWEEK insulin glargine (Lantus Solostar U-100 Insulin) 10 units subcut QPM insulin lispro (Humalog KwikPen (U-100) Insulin) subcut lisinopril 10 mg PO DAILY HPI HPI TV Consult / Transfer Dada: Details: Start time: 10.03am, End time: 11.03am ?I spent 50 minutes speaking with the patient on the phone plus an additional 10 minutes reviewing and updating records for a total of 60 minutes HPI Comments Details: Overall weight loss: 4lbs, or 2.11% TBWL Is doing 5 Pure protein shakes with 1/2 scoop each in 8oz almond milk and one meal Exercise: walking outside [facility] Medical History (Updated 07/01/24 @ 10:33 by José Manuel Braxton MD) Hyperlipidemia Surgical History Hx of section Family History Mother Hypertension Diabetes Father Hypertension Diabetes Kidney problem Son No problems noted. Daughter No problems noted. Social History Alcohol intake: never Patient Tobacco Use Status: Never used Tobacco Telehealth Telehealth Telehealth Platform: Telephone Location of provider rendering services: practice address Location of patient: address on file Patient Identification confirmed using: Name, : Yes Telehealth method: voice only Patient verbally consented to treatment: Yes Patient verbally consented to billing insurance company: Yes Patient informed of any privacy concerns related to visit: Yes Minutes spent on Phone/Video with Pt.: 60 Assessment & Plan Assessment & Plan (1) Obesity (BMI 30-39.9): Code(s): E66.9 - Obesity, unspecified Category: Medical Plan: 1. Plan for lap sleeve gastrectomy. If diaphragmatic or ventral hernias are present at time of surgery, these will be repaired laparoscopically as well. Risks and complications include possible conversion to an open procedure, anastomotic leak, bleeding requiring transfusion, small bowel obstruction, , DVT and pulmonary embolism, cardiac, or pulmonary complications, as intermediate card tender complications such as anastomotic ulcer, insufficient weight loss and vitamin deficiencies. I emphasized the importance of close follow-up, adherence to instructions and good communication. 2. Continue same [employer] lyla meal plan of 5 Pure protein shakes with 1/2 scoop each in 8oz almond milk and one meal. Please measure the food portions in forkfuls with a goal of 6 forks of protein and 6 forks of salad or vegetables 3. Please send me picures of your meal plate daily after you measure it and before you eat it 4. Create an exercise plan through the [employer] lyla for outside walking 5. The best choice would be to purchase a stationary bike, elliptical or treadmill at home that can track calories. Let me know if you do so I can give you an exercise plan. 6. Please buy the [employer] protein bars and let me know if you like them 7. Emphasized the importance of monitoring the blood pressure daily in am when wakes up and two more times throughout the day. If systolic blood pressure is 110 mmHg, or less I explained to the patient that needs to notify me. Also I explained the symptoms of orthostatic hypotension (dizziness and lightheadedness) for which the patient also needs to notify me. 8. Emphasized the importance of checking his blood glucose levels frequently and daily and to report to me any blood glucose below 100, so I can adjust his insulin and prevent hypoglycemic episodes 9. Please send me weight measurements weekly on Mondays
[2024-07-01 10:53] VITALS: BMI 29.9
== END 2024-07-01 11:04 | disposition home or self-care (01) ==
LOC: HO.HBS 07:58
PROVIDERS: PCP Pediatrics; Visit Provider Surgery
DX: E66.9 Obesity, unspecified (principal); Z68.30 Body mass index [BMI] 30.0-30.9, adult
CPT/HCPCS: 99443

== ENCOUNTER → 2024-07-01 07:58 | Outpatient (BNVA) | payer BC, SELFPAY | PROVIDERS: PCP Pediatrics; Visit Provider Surgery ==

== ENCOUNTER 2024-07-24 09:20 | Outpatient (AMB) | payer BC, SELFPAY ==
--- NOTE | 2024-07-24 09:15 | A.OFFWM_ITS ---
Intake Intake Visit Reasons: VIDEO BH Intake Allergies No Known Allergies Allergy (Verified 07/01/24 10:29) [facility] Medical History (Updated 07/01/24 @ 10:33 by José Manuel Braxton MD) Hyperlipidemia Surgical History Hx of section Family History Mother Hypertension Diabetes Father Hypertension Diabetes Kidney problem Son No problems noted. Daughter No problems noted. Social History Alcohol intake: never Patient Tobacco Use Status: Never used Tobacco Behavioral Health Assessment Weight Management Therapy Therapy Notes Details PT is a 44 years old female, who presents for initial visit to complete BH assessment as part of surgical weight loss program. Presenting Concerns Referral Source WMP provider. PT started again on 03/22/2024 at 189Lbs. Reason for referral Completion of behavioral health assessment as part of process for weight-loss surgery. Precipitating Event Obesity, diagnosed with type 2 diabetes after second . Living Situation Current Living Situation Own At risk of losing current housing? No Satisfied with current living situation? Yes Comments PT lives with her and 2 children. Food/Weight/Diet Expectations of change 179Lbs, she has lost 10Lbs. History/Relationship with food PT reports she tends to skip meals History/Relationship with weight PT reports overweight issues started after HS around [id number] when she reached 220Lbs. PT reports after her second her lifestyle changed as she was diagnosed with type 2 diabetes and hypertension. She started Trulicity in april/2024 and since then she has been feeling fatigued, tired, less energy, has nausea and episodes of vomiting couple times at month. The medication is decreasing her appetite causing her to skip meals. In the last 10 years her highest weight was 196Lbs after second in 2021 and lowest 170Lbs in 2019. In the last 2 years she has been morking more, struggled with childcare leading her to be less focused on herself and become more sedentary as in the past she was very active. History/Relationship with dieting Multiple diets and exercise. Portion control. Intermittent fasting, ketto, plan-based diet Social History Family history and relationship Previously . PT has been for about 3 years, but they have been together for about 9 years. They have 2 children, they are 4 and 2. Most of her family is in [place], sister lives in the area. PT reports good family relationships and great communication. 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 Developmental history and status None reported, Currently WNL. Social support . Community support 3 close friends. Congregation/Spirituality [employer]. Cultural/Ethnic information PT was born and raised in [place]. Moved to [place] 10 years ago. Legal Involvement and History Current or historical involvement with the legal system? None Education Highest grade completed Masters degree Preferred learning style Learn by doing and Visual Currently enrolled in educational program? No Interested in further educational program? No Educational Interests/Skills Masters in human services. Photography. 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 ) Wants help to find employment? No Meaningful activities Road trips, hiking, family activities, outdoor activities. Financial Situation Describe current financial situation Comfortable Financial assistance? None Service Service? No Mental Health and Addiction Treatment Current/Past substance abuse? No Comments Alcohol: 1-2 timest month, 1-2 glasses of wine. Cigarettes/Tobacco: None. Cannabis/Edibles: None. Current/Past addictive behavior concerns? No Psychiatric history No history of attending counseling services. PT denies ever been in crisis or inpatient for mental health. There is no history and/or current concern about SI/Sa and self-harm or other harm. Medical and Physical Health Summary Additional Medical History not covered in history None Sexual History concerns None reported Physical exam in the last year? Yes Assessment & Plan Assessment & Plan (1) Adjustment disorder, unspecified: Code(s): F43.20 - Adjustment disorder, unspecified (2) Problems related to inappropriate diet and eating habits: Code(s): Z72.4 - Inappropriate diet and eating habits Plan PT not cleared yet as we need to complete questionnaires, these we not given at intake. So far there are not mental health or safety concerns that would prevent patient from weight-loss surgery from perspective and she appears to be a good candidate. Next lyla: 08/14/2024 at 11am, Telehealth. Telehealth Telehealth [facility]health [facility]: [facility] Location of provider rendering services: practice address Location of patient: address on file Patient Identification confirmed using: Name, : Yes Telehealth method: video Patient verbally consented to treatment: Yes Patient verbally consented to billing insurance company: Yes Patient informed of any privacy concerns related to visit: Yes Minutes spent on Phone/Video with Pt.: 60 Coding Level of Care Code New Pt Tele Psytx >53 mins ([id number]) Patient Type New Diagnoses Adjustment disorder, unspecified F43.20 Problems related to inappropriate diet and eating habits Z72.4 Time Spent (min) 60
== END 2024-07-24 15:11 | disposition home or self-care (01) ==
LOC: HO.HBST 09:20
PROVIDERS: PCP Pediatrics; Visit Provider Counselor Mental Health
DX: F43.20 Adjustment disorder, unspecified (principal); Z72.4 Inappropriate diet and eating habits
CPT/HCPCS: 90837

== ENCOUNTER → 2024-11-27 12:23 | Outpatient (AMB) | payer BC, SELFPAY ==
--- NOTE | 2024-11-27 12:10 | A.OFFWM_ITS ---
Intake Intake Visit Reasons: VIDEO BH F/U Allergies No Known Allergies Allergy (Verified 07/01/24 10:29) [facility] Medical History (Updated 11/27/24 @ 13:49 by Nicole Morrow, RN) YRN (obstructive sleep apnea) Diabetes Hyperlipidemia Surgical History (Updated 11/27/24 @ 13:34 by Nicole Morrow, RN) Tubal ligation status Hx of section Family History Mother Hypertension Diabetes Father Hypertension Diabetes Kidney problem Son No problems noted. Daughter No problems noted. Social History Are you a primary resident care technician to a significant other at home: No Do you presently have visiting nurse or other home services: No Alcohol intake: never Patient Tobacco Use Status: Never used Tobacco Behavioral Health Assessment Weight Management Therapy Therapy Notes Details PT is a 44-year-old female presenting for an initial behavioral health assessment as part of the surgical weight loss program. PT reports no history of mental health treatment, hospitalizations, or crises. She denies any recent or past safety concerns related to suicidal ideation, self-harm, or harm to others. There is no reported history of substance use. Additionally, there is no evidence of stress or emotional eating, and BES scores indicate a low risk for binge eating behaviors. PHQ-9 results show no active depressive symptoms or concerns. The mental status exam is within normal limits, indicating no impairment in functioning. At this time, the patient is cleared from a behavioral health standpoint. Presenting Concerns Referral Source WMP provider. Reason for referral Completion of behavioral health assessment as part of process for weight-loss surgery. Precipitating Event Obesity, diagnosed with type 2 diabetes after second . Living Situation Current Living Situation Own At risk of losing current housing? No Satisfied with current living situation? Yes Comments PT lives with her and 2 children. Food/Weight/Diet Expectations of change PT started again on 03/22/2024 at 189Lbs. Recent weight as of 10/29/2024: 172Lbs Meal plan: shakes only. Exercise plan: Gym membership. Treadmill 3-4 days at week. History/Relationship with food PT reports she tends to skip meals History/Relationship with weight PT reports overweight issues started after HS around [id number] when she reached 220Lbs. PT reports after her second her lifestyle changed as she was diagnosed with type 2 diabetes and hypertension. She started Trulicity in april/2024 and since then she has been feeling fatigued, tired, less energy, has nausea and episodes of vomiting couple times at month. The medication is decreasing her appetite causing her to skip meals. In the last 10 years her highest weight was 196Lbs after second in 2021 and lowest 170Lbs in 2019. In the last 2 years she has been morking more, struggled with childcare leading her to be less focused on herself and become more sedentary as in the past she was very active. History/Relationship with dieting Multiple diets and exercise. Portion control. Intermittent fasting, ketto, plan-based diet Binge Eating Do you frequently eat large amounts of food in short periods of time, not feeling physically hungry? No Do you feel out of control when you eat a large amount of food in a short period of time? No Do you eat large amounts of food rapidly and typically alone? No Night Eating Do you wake up at least once during the night to eat? No If you wake up in the night, do you find that it is necessary to eat something in order to fall back asleep? No Do you have little or no appetite in the morning and feel very hungry in the evening, often overeating between dinner and when you go to bed? No Social History Family history and relationship Previously . PT has been for about 3 years, but they have been together for about 9 years. They have 2 children, they are 4 and 2. Most of her family is in [place], sister lives in the area. PT reports good family relationships and great communication. 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 Developmental history and status None reported, Currently WNL. Social support . Community support 3 close friends. Quaker/Spirituality Caodaism. Cultural/Ethnic information PT was born and raised in [place]. Moved to [place] 10 years ago. Legal Involvement and History Current or historical involvement with the legal system? None Education Highest grade completed Masters degree Preferred learning style Learn by doing and Visual Currently enrolled in educational program? No Interested in further educational program? No Educational Interests/Skills Masters in human services. Photography. 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 ) Wants help to find employment? No Meaningful activities Road trips, hiking, family activities, outdoor activities. Financial Situation Describe current financial situation Comfortable Financial assistance? None Service Service? No Mental Health and Addiction Treatment Current/Past substance abuse? No Comments Alcohol: 1-2 timest month, 1-2 glasses of wine. Cigarettes/Tobacco: None. Cannabis/Edibles: None. Current/Past addictive behavior concerns? No Psychiatric history No history of attending counseling services. PT denies ever been in crisis or inpatient for mental health. There is no history and/or current concern about SI/Sa and self-harm or other harm. Medical and Physical Health Summary Additional Medical History not covered in history None Sexual History concerns None reported Physical exam in the last year? Yes Pain Screening Current pain? No Pain in the last few months? No Medications Is the patient compliant with medications? Yes Does the patient have Gutierrez Guardian in place? Not applicable Does the patient use complimentary health approaches? No Trauma/Abuse History History of trauma? No Questionnaires PHQ-9 Over the last 2 weeks, how often have you been bothered by any of the following problems? 1. Little interest or pleasure in doing things: not at all 2. Feeling down, depressed, or hopeless: not at all 3. Trouble falling or staying asleep, or sleeping too much: not at all 4. Feeling tired or having little energy: not at all 5. Poor appetite or overeating: not at all 6. Feeling bad about yourself - or that you are a failure or have let yourself or your family down: not at all 7. Trouble concentrating on things, such as reading the newspaper or watching television: not at all 8. Moving or speaking so slowly that other people could have noticed. Or the opposite - being so fidgety or restless that you have been moving around a lot more than usual: not at all 9. Thoughts that you would be better off or of hurting yourself in some way: not at all Total score: 0 Depression Screening Interpretation: Negative Depression Screening Done: Yes 45995 - PHQ-9 Billing: Yes Source: Developed by Drs. Levi Alatorre, Regla Rios, Arjun Tirado and colleagues, with an educational micah from [employer] and some sugar. Binge Eating Scale Group 1 A. I don't feel self-conscious about my wt. or body size when I'm with others. B. I feel concerned about how I look to others, but it normally does not make me fell disappointed with myself C. I do get self-conscious about my appearance and wt. which makes me feel disappointed in myself. D. I feel very self-conscious about my wt. and frequently I feel intense shame and disgust for myself. I try to avoid social contacts because of my self- consciousness. Response Group 1: A Group 2 A. I don't have any difficulty eating slowly in the proper manner. B. Although I seem to gobble down foods, I don't end up feeling stuffed because of eating to much. C. At times, I tend to eat quickly and then, I feel uncomfortably full afterwards. D. I have the habit of bolting down my food, without really chewing it. When this happens I usually feel uncomfortably stuffed because I've eaten to much. Response Group 2: A Group 3 A. I feel capable to control my eating urges when I want to. B. I feel like I have failed to control my eating more than the average person. C. I feel utterly helpless when it comes to feeling in control of my eating urges. D. Because I feel so helpless about controlling my eating I have become very desperate about trying to get control. Response Group 3: A Group 4 A. I don't have the habit of eating when I'm bored. B. I sometimes eat when I'm bored, but often I'm able to get busy and get my mind off food. C. I have a regular habit of eating when I'm bored, but occasionally, I can use some other activity to get my mind off eating. D. I have a strong habit of eating when I'm bored. Nothing seems to help me breath the habit. Response Group 4: A Group 5 A. I'm usually physically hungry when I eat something. B. Occasionally, I eat something on impulse even though I really am not hungry. C. I have the regular habit of eating foods, that I might not really enjoy, to satisfy a hungry feeling even though physically, I don't need the food. D. Although I'm not physically hungry, I get a hungry feeling in my mouth that only seems to be satisfied when I eat a food, like sandwich, that fills my mouth. Sometimes, when I eat the food to satisfy my mouth hunger, I then spit the food out so I won't gain weight. Response Group 5: A Group 6 A. I don't feel any guilt or self-hate after I overeat. B. After I overeat, occasionally I feel guilt or self-hate. C. Almost all the time I experience strong guilt or self-hate after I overeat. Response Group 6: A Group 7 A. I don't lose total control of my eating when dieting even after periods when I overeat. B. Sometimes when I eat a forbidden food on a diet, I feel like I blew it and eat even more. C. Frequently, I have the habit of saying to myself, I've blown it now, why not go all the way, when I overeat on a diet. When that happens I eat more. D. I have a regular habit of starting a strict diets for myself but I break the diets by going on an eating binge. My life seems to be either a feast or famine. Response Group 7: A Group 8 A. I rarely eat so much food that I feel uncomfortably stuffed afterwards. B. Usually about once a month, I each such a quantity of food, I end up feeling very stuffed. C. I have regular periods during the month when I eat large amounts of food, either at mealtime or at snacks. D. I eat so much food that I regularly feel quite uncomfortable after eating and sometimes a bit nauseous. Response Group 8: B Group 9 A. My level of calorie intake does not go up very high or go down very low on a regular basis. B. Sometimes after I overeat, I will try to reduce my caloric intake to almost nothing to compensate for the excess calories I've eaten. C. I have a regular habit of overeating during the night. It seems that my routine is not to be hungry in the morning but overeat in the evening. D. In my adult years, I have had week-long periods where I practically starve myself. This follows periods when I overeat. It seems I live a life of either feast or famine. Response Group 9: A Group 10 A. I usually am able to stop eating when I want to. I know when enough is enough. B. Every so often, I experience a compulsion to eat which I can't seem to control. C. Frequently, I experience strong urges to eat which I seem unable to control, but at other times I can control my eating urges. D. I feel incapable of controlling urges to eat. I have a fear of not being able to stop eating voluntarily. Response Group 10: A Group 11 A. I don't have any problem stopping eating when I feel full. B. I usually can stop eating when I feel full but occasionally overeat leaving me feeling uncomfortably stuffed. C. I have a problem stopping eating once I start and usually I feel uncomfortably stuffed after I eat a meal. D. Because I have a problem not being able to stop eating when I want, I sometimes have to induce vomiting to relieve my stuffed feeling. Response Group 11: A Group 12 A. I seem to eat just as much when I'm with others, Family social gatherings as when I'm by myself. B. Sometimes, when I'm with other persons, I don't eat as much as I want to eat because I'm self-conscious about my eating. C. Frequently, I eat only a small amount of food when others are present, becau se I'm very embarrassed about my eating. D. I feel so ashamed about overeating that I pick times to overeat when I know no one will see me. I feel like a closet eater. Response Group 12: A Group 13 A. I eat three meals a day with only an occasional between meal snack. B. I eat 3 meals a day, but I also normally snack between meals. C. When I am snacking heavily, I get in the habit of skipping regular meals. D. There are regular periods when I seem to be continually eating, with no planned meals. Response Group 13: A (mostly skipping meals.) Group 14 A. I don't think much about trying to control unwanted eating urges. B. At least some of the time, I feel my thoughts are pre-occupied with trying to control my eating urges. C. I feel that frequently I spend much time thinking about how much I ate or about trying not to eat anymore. D. It seems to me that most of my waking hours are pre-occupied by thoughts about eating or not eating. I feel like I'm constantly struggling not to eat. Response Group 14: A Group 15 A. I don't think about food a great deal. B. I have strong craving for food but they last only for brief periods of time. C. I have days when I can't seem to think about anything else but food. D. Most of my days seem to be pre-occupied with thoughts about food. I feel like I live to eat. Response Group 15: B Group 16 A. I usually know whether or not I'm physically hungry. I take the right portion of food to satisfy me. B. Occasionally, I feel uncertain about knowing whether or not I'm physically hungry. A these times it's hard to know how much food I should take to satisfy me. C. Even though I might know how many calories I should eat, I don't have any idea what is a normal amount of food for me. Response Group 16: A Binge Eating Score: 2 Score less than 17 Minimal Risk Score between 18-26 Moderate Risk Score between 27-46 High Risk Assessment & Plan Assessment & Plan (1) Adjustment disorder, unspecified: Code(s): F43.20 - Adjustment disorder, unspecified (2) Problems related to inappropriate diet and eating habits: Code(s): Z72.4 - Inappropriate diet and eating habits Plan PT has been cleared from a behavioral health standpoint. She will be seen for follow-up in 1-3 weeks post-operatively. Telehealth Telehealth Telehealth Platform: [facility] Location of provider rendering services: practice address Location of patient: address on file Patient Identification confirmed using: Name, : Yes Telehealth method: video Patient verbally consented to treatment: Yes Patient verbally consented to billing insurance company: Yes Patient informed of any privacy concerns related to visit: Yes Minutes spent on Phone/Video with Pt.: 45 Coding Level of Care Code Established Pt Tele Psytx 45 mins (88552) Patient Type Established Diagnoses Adjustment disorder, unspecified F43.20 Problems related to inappropriate diet and eating habits Z72.4 Additional Codes PHQ-9 - 26503 - PHQ-9 Billing: Yes ([id number]) Time Spent (min) 45
== END ==
LOC: HO.HBST 12:23
PROVIDERS: PCP Pediatrics; Visit Provider Counselor Mental Health
DX: F43.20 Adjustment disorder, unspecified (principal); Z72.4 Inappropriate diet and eating habits
CPT/HCPCS: 90834

== ENCOUNTER 2024-11-27 13:00 | Day surgery (SDC) | payer BC, SELFPAY ==
--- NOTE | 2024-07-16 09:45 | HO.ANESPROP2 ---
HPI - Anesthesia Eval Consult details Narrative: 44yo F for Upper Endoscopy Anesthesia Pre-Procedure Meds Is the patient on any of the following meds?: GLP1/DPP4 PMFSH Active Problems Active Problems: All Active Problems Steatosis, liver (Acute) Hyperlipidemia (Acute) BMI 30.0-30.9,adult (Acute) Overweight (BMI 25.0-29.9) (Acute) Obesity (BMI 30-39.9) (Acute) High cholesterol (Acute) HTN (hypertension) (Acute) DMII (diabetes mellitus, type 2) (Acute) Class 1 obesity due to excess calories in adult (Acute) Past Medical History Medical History (Updated 07/01/24 @ 10:33 by José Manuel Braxton MD) Hyperlipidemia Family History Family History Mother Hypertension Diabetes Father Hypertension Diabetes Kidney problem Son No problems noted. Daughter No problems noted. Surgical History Surgical History Hx of section Social History Social History Alcohol intake: never Patient Tobacco Use Status: Never used Tobacco Meds Allergies Allergy/AdvReac Type Severity Reaction Status Date / Time No Known Allergies Allergy Verified 07/01/24 10:29 Home Medications ?Medication ?Instructions ?Recorded ?Confirmed ?Last Taken ?Type insulin lispro 100 unit/mL subcut 03/17/23 07/01/24 Unknown History subcutaneous pen (Humalog KwikPen (U-100) Insulin) dulaglutide 3 mg/0.5 mL 3 mg subcut QWEEK 04/04/23 07/01/24 Unknown History subcutaneous pen injector (Trulicity) lisinopril 10 mg tablet 10 mg PO DAILY 03/22/24 07/01/24 Unknown History insulin glargine 100 unit/mL (3 10 unit subcut QPM 07/01/24 07/01/24 Unknown History mL) subcutaneous pen (Lantus Solostar U-100 Insulin) Assessment and Plan Assessment Anesthesia Assessment: Chart Reviewed
[2024-08-20 08:22] VITALS: BMI 29.9
--- NOTE | 2024-08-20 14:58 | HO.ANESPROP2 ---
HPI - Anesthesia Eval Consult details Narrative: 44yo F for Upper Endoscopy, 09/11/24 Anesthesia Pre-Procedure Meds Is the patient on any of the following meds?: GLP1/DPP4 PMFSH Active Problems Active Problems: All Active Problems Steatosis, liver (Acute) Hyperlipidemia (Acute) BMI 30.0-30.9,adult (Acute) Overweight (BMI 25.0-29.9) (Acute) Obesity (BMI 30-39.9) (Acute) High cholesterol (Acute) HTN (hypertension) (Acute) DMII (diabetes mellitus, type 2) (Acute) Class 1 obesity due to excess calories in adult (Acute) Past Medical History Medical History (Updated 07/01/24 @ 10:33 by José Manuel Braxton MD) Hyperlipidemia Family History Family History Mother Hypertension Diabetes Father Hypertension Diabetes Kidney problem Son No problems noted. Daughter No problems noted. Surgical History Surgical History Hx of section Social History Social History Alcohol intake: never Patient Tobacco Use Status: Never used Tobacco Meds Allergies Allergy/AdvReac Type Severity Reaction Status Date / Time No Known Allergies Allergy Verified 07/01/24 10:29 Home Medications ?Medication ?Instructions ?Recorded ?Confirmed ?Last Taken ?Type insulin lispro 100 unit/mL subcut 03/17/23 07/01/24 Unknown History subcutaneous pen (Humalog KwikPen (U-100) Insulin) dulaglutide 3 mg/0.5 mL 3 mg subcut QWEEK 04/04/23 07/01/24 Unknown History subcutaneous pen injector (Trulicity) lisinopril 10 mg tablet 10 mg PO DAILY 03/22/24 07/01/24 Unknown History insulin glargine 100 unit/mL (3 10 unit subcut QPM 07/01/24 07/01/24 Unknown History mL) subcutaneous pen (Lantus Solostar U-100 Insulin) Exam Height,Weight and Vital Signs: Height 5 ft 6 in Weight 83.915 kg Assessment and Plan Assessment Anesthesia Assessment: Chart Reviewed
[2024-11-27 13:37] VITALS: BMI 27.8
[2024-11-27 13:50] VITALS: BP 120/78; PULSE 73; RESP 16; TEMP 36.4; O2SAT 100
--- NOTE | 2024-11-27 13:59 | MHC.SHP ---
Pre-Procedural Eval Section A - 24 Hr Update-Section A only Date of Service: 11/27/24 The patient is an INPATIENT: No The patient has been examined within 24 hours of the surgical procedure. The History & Physical has been completed within 30 days and I have reviewed it.: Yes Section B - Complete if H&P > 30 days Chief Complaint: Morbid (severe) obesity due to excess calories Relevant Family History (Specify if Yes): No Relevant Social History: None Present Medications: None Medical History: No relevant PMH History of Previous Operations: No relevant previous surgery Allergies: Allergies Allergy/AdvReac Type Severity Reaction Status Date / Time No Known Allergies Allergy Verified 07/01/24 10:29 Review of Systems Sugical H&P ROS: Negative: Constitution, Cardiovascular, Respiratory, Neurological, Psychiatric, Hem-Onc, Allergic/Immunologic, Gastrointestinal, Genitourinary, Musculoskeletal, Integumentary, Endocrine and Eyes/Ears/Nose/Throat Exam Surgical H&P Exam: Normal: HEENT, Normal: Heart, Normal: Lungs, Normal: Extremities, Normal: Abdomen, Normal: Skin and Normal: Neurological Plan Diagnosis/Plan: Unchanged (EGD to assess the stomach's anatomy. Risks of bleeding and perforation were discussed with the patient and she is in agreement with the plan.) I have reviewed the history and physical and performed a pertinent physical examination on my patient. No changes have occurred unless specified. Time Spent With Patient Time: Total time managing care of this patient today ____ minutes.
--- NOTE | 2024-11-27 14:00 | P.CONAN_ITS ---
[facility] Active Problems Active Problems: All Active Problems Steatosis, liver (Acute) BMI 30.0-30.9,adult (Acute) Overweight (BMI 25.0-29.9) (Acute) Obesity (BMI 30-39.9) (Acute) High cholesterol (Acute) HTN (hypertension) (Acute) DMII (diabetes mellitus, type 2) (Acute) Class 1 obesity due to excess calories in adult (Acute) Hyperlipidemia (Acute) Past Medical History Medical History (Updated 11/27/24 @ 13:49 by Nicole Morrow RN) YRN (obstructive sleep apnea) Diabetes Hyperlipidemia Family History Family History Mother Hypertension Diabetes Father Hypertension Diabetes Kidney problem Son No problems noted. Daughter No problems noted. Family history of problems with anesthesia: No Surgical History Surgical History (Updated 11/27/24 @ 13:34 by Nicole Morrow RN) Tubal ligation status Hx of section History of Problems with Anesthesia: No Social History Social History Alcohol intake: never Patient Tobacco Use Status: Never used Tobacco Advance Directives: No Advance Directives Information Provided: Yes Meds Allergies Allergy/AdvReac Type Severity Reaction Status Date / Time No Known Allergies Allergy Verified 07/01/24 10:29 Home Medications ?Medication ?Instructions ?Recorded ?Confirmed ?Last Taken ?Type insulin lispro 100 unit/mL subcut DIRECTED 03/17/23 07/01/24 11/25/24 History subcutaneous pen (Humalog KwikPen (U-100) Insulin) dulaglutide 3 mg/0.5 mL 3 mg subcut QWEEK 04/04/23 11/27/24 11/19/24 History subcutaneous pen injector (Trulicity) lisinopril 10 mg tablet 10 mg PO DAILY 03/22/24 11/27/24 11/25/24 History insulin glargine 100 unit/mL (3 10 unit subcut QPM 07/01/24 11/27/24 11/25/24 History mL) subcutaneous pen (Lantus Solostar U-100 Insulin) Exam Height,Weight and Vital Signs: Height 5 ft 6 in Weight 78.018 kg Airway Mallampati Class: III TM Dist: >3cm Neck ROM: Full Assessment and Plan Assessment Anesthesia Assessment: Anesthesia Plan Discussed and Chart Reviewed Final Anesthetic Review Family History of Problems with Anesthesia: No History of Problems with Anesthesia: No NPO: Yes ASA Class: III Final Preanesthetic Review: No Changes in Pt Med Stat, Meds/Allgs Chart Reviewed, Consent Obtained/Reviewed and Anes Risks/Benef Reviewed Patient Risk: Intermediate Procedure Risk: Low Anesthetic Plan Anesthetic Plan: TIVA Disposition: Standard PACU
[2024-11-27] MEDS: Lactated Ringers 1,000 ML 80 ML IVCONT (14:03)
--- NOTE | 2024-11-27 14:07 | P.BOP_ITS ---
Brief Operative Note Date of Service: 11/27/24 Pre-op diagnosis: Obesity Procedure: PROCEDURE DATE: PREOPERATIVE DIAGNOSIS: GERD POSTOPERATIVE DIAGNOSIS: ?Same as above. 1) small hiatal hernia, 2) distal gastritis PROCEDURE: [id number]-rzykesdbbhbp with biopsies Surgeon: Christian Braxton M.D.. Ph.D. Consulting Psychologist: None ? Anesthesia: IV sedation Estimated blood loss: ?Minimal FINDINGS AND PROCEDURE: ? OPERATIVE INDICATIONS: ?The patient is a 44 year old female known to me who is interested in bariatric surgery. Based on this information I recommended an upper endoscopy to evaluate the stomach's anatomy. Risks and complications of the surgery were discussed with the patient in advance particularly the possibility of perforation or bleeding that may require surgical intervention. The patient understood the risks and was in agreement with the plan. ? PROCEDURE: After informed consent was obtained by the patient, the patient was ?transferred to the Operating Room and was placed in the supine position.? After successful induction of IV sedation, a mouth block was inserted and the patient was placed in the left lateral decubitus position. An upper endoscopy was performed next, the oropharynx and esophagus appeared within the normal limits. There was no hiatal hernia. The z-line was smooth. Two biopsies were obtained from the distal esophagus 2-3 cm proximal to the GE junction and two additional biopsies from the GE junction. The stomach was entered and it appeared to be of normal size. There was no gastritis. There was no stricture or ulcer. A biopsy was obtained from the gastric fundus and the antrum. No significant bleeding was noted from any of the biopsy sites. Retroflexion of the scope confirmed a normal GE junction. The scope was then advanced into the duodenum which appeared to be normal as well. At that point the duodenum ?and the stomach were decompressed and the scope was withdrawn from the patient's mouth. The patient extubated and was transferred in stable condition to the Recovery Room for further care. I was present and performed all steps of the procedure. There were no residents to assist with this case. Karan Braxton M.D., Ph.D. Surgeon: José Manuel Braxton MD Anesthesia: MAC and local Was an Consulting Psychologist used for this Procedure?: No Estimated blood loss (mL): 0 IV fluids (mL): 400 Urine output (mL): 0 (No Evangelista to record output) Pathology: other (1) antrum x1, 2) fundus x1, 3) GE junction x2, 4) distal esophagus x2) Condition: stable Disposition: PACU
[2024-11-27 14:33] VITALS: BP 95/55; PULSE 78; RESP 17; TEMP 36.7; O2SAT 100
[2024-11-27 14:48] VITALS: BP 112/66; PULSE 69; RESP 18; O2SAT 100
[2024-11-27 15:03] VITALS: BP 118/77; PULSE 72; RESP 18; O2SAT 98
[2024-11-27 15:18] VITALS: BP 117/78; PULSE 73; RESP 18; TEMP 36.8; O2SAT 99
[2024-11-27 15:37] LABS: Glucose, Whole Blood 95 mg/dL (60-115)
== END 2024-11-27 16:00 | disposition home or self-care (01) ==
PROVIDERS: PCP Pediatrics; Visit Provider Surgery
PROC: 0DJ08ZZ Inspection of Upper Intestinal Tract, Via Natural or Artificial Opening Endoscopic (ICD-10-PCS; CPT 43235; principal; 2024-11-27 14:50)
DX: K21.9 Gastro-esophageal reflux disease without esophagitis (principal); E66.01 Morbid (severe) obesity due to excess calories; Z68.30 Body mass index [BMI] 30.0-30.9, adult; E11.9 Type 2 diabetes mellitus without complications; E78.5 Hyperlipidemia, unspecified; G47.33 Obstructive sleep apnea (adult) (pediatric); Z79.4 Long term (current) use of insulin; Z79.85 Long-term (current) use of injectable non-insulin antidiabetic drugs; Z79.899 Other long term (current) drug therapy; Z99.89 Dependence on other enabling machines and devices; Z98.51 Tubal ligation status
CPT/HCPCS: 43239; 82947; 88305; 88313; 88342; J2003; J2704

== ENCOUNTER → 2024-11-27 13:00 | Outpatient (BNV) | payer BC, SELFPAY | PROVIDERS: PCP Pediatrics; Visit Provider Surgery | DX: K21.9 Gastro-esophageal reflux disease without esophagitis (principal); K29.70 Gastritis, unspecified, without bleeding | CPT/HCPCS: 43239 ==

== ENCOUNTER → 2025-02-19 07:58 | Outpatient (BNVA) | payer BC, SELFPAY | PROVIDERS: PCP Pediatrics; Visit Provider Surgery ==